=== PATIENT | female | born 1955 | race Two or more races ===

== ENCOUNTER 2018-07-17 14:00 | Outpatient (CLI) | payer OTHER | END 2018-07-17 14:11 | disposition home or self-care (01) | LOC: MAMO-SONO 14:00 | DX: Z12.31 Encounter for screening mammogram for malignant neoplasm of breast (principal); Z87.898 Personal history of other specified conditions; M54.5 Low back pain; E03.8 Other specified hypothyroidism; I10 Essential (primary) hypertension; E78.89 Other lipoprotein metabolism disorders; E11.51 Type 2 diabetes mellitus with diabetic peripheral angiopathy without gangrene; E55.9 Vitamin D deficiency, unspecified; E66.8 Other obesity ==

== ENCOUNTER → 2018-07-26 | Outpatient (CLI) | payer OTHER | END | disposition home or self-care (01) | LOC: NUCLEAR 11:00 | DX: M81.0 Age-related osteoporosis without current pathological fracture (principal); M54.5 Low back pain ==

== ENCOUNTER 2018-12-13 11:27 | Outpatient (CLI) | payer OTHER | END 2018-12-13 12:19 | disposition home or self-care (01) | LOC: SONOGRAMA 11:27 | DX: E66.8 Other obesity (principal); Z12.39 Encounter for other screening for malignant neoplasm of breast; I10 Essential (primary) hypertension; E78.89 Other lipoprotein metabolism disorders; E11.51 Type 2 diabetes mellitus with diabetic peripheral angiopathy without gangrene; E55.9 Vitamin D deficiency, unspecified; F41.8 Other specified anxiety disorders ==

== ENCOUNTER 2020-02-26 07:08 | Outpatient (CLI) | payer OTHER | END 2020-02-26 07:12 | disposition home or self-care (01) | LOC: MAMO-SONO 07:08 | PROVIDERS: ATTEND Internal Medicine | DX: N28.89 Other specified disorders of kidney and ureter (principal); M54.5 Low back pain; E03.8 Other specified hypothyroidism; I10 Essential (primary) hypertension; E78.89 Other lipoprotein metabolism disorders; E11.51 Type 2 diabetes mellitus with diabetic peripheral angiopathy without gangrene; E55.9 Vitamin D deficiency, unspecified; E66.8 Other obesity; F41.8 Other specified anxiety disorders; K80.12 Calculus of gallbladder with acute and chronic cholecystitis without obstruction; K80.20 Calculus of gallbladder without cholecystitis without obstruction; K82.8 Other specified diseases of gallbladder ==

== ENCOUNTER 2020-08-26 11:02 | Outpatient (CLI) | payer OTHER | END 2020-08-26 11:10 | disposition home or self-care (01) | LOC: MAMO-SONO 11:02 | PROVIDERS: ATTEND Internal Medicine | DX: N63.11 Unspecified lump in the right breast, upper outer quadrant (principal); Z12.31 Encounter for screening mammogram for malignant neoplasm of breast ==

== ENCOUNTER 2020-08-27 14:03 | Outpatient (CLI) | payer OTHER | END 2020-08-27 14:34 | disposition home or self-care (01) | LOC: NUCLEAR 14:03 | PROVIDERS: ATTEND Internal Medicine | DX: M54.5 Low back pain (principal); M81.0 Age-related osteoporosis without current pathological fracture ==

== ENCOUNTER → 2022-03-30 | Outpatient (CLI) | payer OTHER | END | disposition home or self-care (01) | LOC: MAMO-SONO 11:18 | PROVIDERS: ATTEND Internal Medicine | DX: Z12.31 Encounter for screening mammogram for malignant neoplasm of breast (principal) ==

== ENCOUNTER 2022-07-11 07:55 | Outpatient (CLI) | payer OTHER | END 2022-07-11 07:56 | disposition home or self-care (01) | LOC: NUCLEAR 07:55 | PROVIDERS: ATTEND Internal Medicine Cardiovascular Disease | DX: I20.1 Angina pectoris with documented spasm (principal) | CPT/HCPCS: 78452; 93017; A9500 ==

== ENCOUNTER 2022-12-21 09:20 | Outpatient (CLI) | payer OTHER | END 2022-12-21 09:24 | disposition home or self-care (01) | LOC: RAD 09:20 | PROVIDERS: ATTEND Internal Medicine | DX: M54.50 Low back pain, unspecified (principal); E03.9 Hypothyroidism, unspecified; E11.51 Type 2 diabetes mellitus with diabetic peripheral angiopathy without gangrene; E55.9 Vitamin D deficiency, unspecified; E66.8 Other obesity; E78.9 Disorder of lipoprotein metabolism, unspecified; F41.9 Anxiety disorder, unspecified; I10 Essential (primary) hypertension; Z12.11 Encounter for screening for malignant neoplasm of colon; Z88.0 Allergy status to penicillin ==

== ENCOUNTER 2023-06-05 12:52 | Outpatient (CLI) | payer OTHER | END 2023-06-05 12:54 | disposition home or self-care (01) | LOC: NUCLEAR 12:52 | PROVIDERS: ATTEND Internal Medicine | DX: Z13.820 Encounter for screening for osteoporosis (principal); M81.0 Age-related osteoporosis without current pathological fracture ==

== ENCOUNTER 2023-10-31 09:39 | Outpatient (CLI) | payer OTHER | END 2023-10-31 09:54 | disposition home or self-care (01) | LOC: TOM 09:39 | PROVIDERS: ATTEND Internal Medicine | DX: E03.9 Hypothyroidism, unspecified (principal); E11.51 Type 2 diabetes mellitus with diabetic peripheral angiopathy without gangrene; E55.9 Vitamin D deficiency, unspecified; E66.8 Other obesity; E78.9 Disorder of lipoprotein metabolism, unspecified; F41.9 Anxiety disorder, unspecified; I10 Essential (primary) hypertension; Z13.820 Encounter for screening for osteoporosis ==

== ENCOUNTER 2024-07-31 10:27 | Outpatient (CLI) | payer OTHER | END 2024-07-31 10:33 | disposition home or self-care (01) | LOC: MAMO-SONO 10:27 | PROVIDERS: ATTEND Internal Medicine | DX: N60.11 Diffuse cystic mastopathy of right breast (principal); N60.12 Diffuse cystic mastopathy of left breast; Z12.31 Encounter for screening mammogram for malignant neoplasm of breast; E03.9 Hypothyroidism, unspecified; E11.51 Type 2 diabetes mellitus with diabetic peripheral angiopathy without gangrene; E55.9 Vitamin D deficiency, unspecified; E78.9 Disorder of lipoprotein metabolism, unspecified; F41.9 Anxiety disorder, unspecified; I10 Essential (primary) hypertension; Z13.820 Encounter for screening for osteoporosis ==

== ENCOUNTER 2024-10-25 10:03 | Outpatient (CLI) | payer OTHER | END 2024-10-25 10:15 | disposition home or self-care (01) | LOC: MRI 10:03 | PROVIDERS: ATTEND Internal Medicine | DX: M67.51 Plica syndrome, right knee (principal); S83.200A Bucket-handle tear of unspecified meniscus, current injury, right knee, initial encounter; M25.561 Pain in right knee; Z13.820 Encounter for screening for osteoporosis; E03.9 Hypothyroidism, unspecified; E55.9 Vitamin D deficiency, unspecified; E78.9 Disorder of lipoprotein metabolism, unspecified; F41.9 Anxiety disorder, unspecified; I10 Essential (primary) hypertension | CPT/HCPCS: 73721 ==